=== PATIENT | male | born 1945 | race Caucasian/White ===

== ENCOUNTER 2017-04-18 04:47 | Emergency (ER) | payer OTHER, MEDICARE ==
[~2017-04-18] VITALS: Ht 180.3 cm; Wt 114.9 kg
[~2017-04-18 04:47] MED LIST: ACCUPRIL40 MG PO; Aspirin E.C. PO; BACTRIM,SEPT1 TABLET PO; Fosamax PO; HYDROCHLOROTHIA25 MG PO; PRAVASTATIN SOD10 MG PO; VITAMINS
[2017-04-18 05:14] LABS: HEMATOCRIT 46.4 % (38.0-50.0); MCH 27.1 PG (29.0-34.0); MCHC 33.2 G/DL (30.0-36.0); MCV 81.7 FL (86-99); MEAN PLAT.VOLUME 9.1 uM^3 (9.0-12.4); PLATELET COUNT 247 K/uL (156-360); RBC DIS.WIDTH-CV 13.2 % (11.8-14.6); RBC DIS.WIDTH-SD 38.6 % (39-53); RED BLOOD COUNT 5.68 M/uL (4.00-5.50); WHITE BLOOD COUNT 8.1 K/uL (4.1-10.2)
[2017-04-18 05:33] LABS: CHLORIDE 103 mEq/L (99-109); POTASSIUM 3.5 mEq/L (3.7-5.4); SODIUM 137 mEq/L (136-147)
[2017-04-18 05:35] LABS: GLUCOSE 101 mg/dL (70-99)
[2017-04-18 05:36] LABS: ANION GAP 10 MEQ/L (2-14)
[2017-04-18 05:37] LABS: TOTAL BILIRUBIN 0.7 mg/dL (0.0-1.0)
[2017-04-18 05:39] LABS: ALKALINE PHOSPHATASE 73 IU/L (3-129); GFR ESTIMATE (CALCULATED) 58 mL/min/
[2017-04-18 05:40] LABS: UREA NITROGEN (BUN) 17 mg/dL (9-23)
[2017-04-18 05:42] LABS: LIPASE 54 U/L (1.0-51.0)
[2017-04-18 08:01] LABS: ADD MIUA? NO; BILIRUBIN NEGATIVE; BLOOD NEGATIVE; COLOR YELLOW ((YELLOW)); GLUCOSE (STRIP) NEGATIVE; KETONES 5; LEUKOCYTES NEGATIVE; NITRITE NEGATIVE; PROTEIN (STRIP) NEGATIVE; SPECIFIC GRAVITY 1.023 (1.000-1.030); UCUL ADDED? NO; UROBILINOGEN 0.2 MG/DL (0.2-1.0)
[2017-04-18] MEDS ORDERED: CIPRO500 MG PO (10:23)
[2017-04-18] MEDS ORDERED: FLAGYL500 MG PO (10:23)
[2017-04-18] MEDS ORDERED: BENTYL20 MG PO (10:24)
[2017-04-18] MEDS ORDERED: IMODIUM A-D2 M2 PO (10:28)
[2017-04-18 10:51] VITALS: BP 119/74
== END 2017-04-18 10:52 | disposition home or self-care (01) ==
LOC: EME 04:47
DX: K52.9 Noninfective gastroenteritis and colitis, unspecified (principal); I10 Essential (primary) hypertension
CPT/HCPCS: 74177; 80053; 81003; 83605; 83690; 85027; 99281; 99285; J7030